=== PATIENT | female | born 1980 | race Caucasian/White ===

== ENCOUNTER 2025-02-12 12:42 | Day surgery (SDC) | payer OTHER ==
[2025-02-12] MEDS: IRON SUCROSE INJECTION 300 MG in SODIUM CHLORIDE 250 ML IVPB ONE (13:25)
[2025-02-12 15:23] VITALS: TEMP 98.3
[2025-02-12 15:25] VITALS: BP 128/81; PULSE 84; RESP 18
== END 2025-02-12 15:20 | disposition home or self-care (01) ==
LOC: JONCNONCHE 12:42
PROVIDERS: ATTEND Internal Medicine Hematology & Oncology
PROC: 3E033GC Introduction of Other Therapeutic Substance into Peripheral Vein, Percutaneous Approach (ICD-10-PCS; principal; 2025-02-12)
DX: D50.9 Iron deficiency anemia, unspecified (principal)
CPT/HCPCS: J1756